=== PATIENT | female | born 1985 | race Caucasian/White ===

== ENCOUNTER 2017-09-24 03:04 | Emergency (ER) | payer OTHER ==
[~2017-09-24] VITALS: Ht 162.6 cm; Wt 89.9 kg
[~2017-09-24 03:04] MED LIST: ALD250 PO; CLON1TAB PO; DOCU-299 PO; FERR325E14 PO; PREN-385 PO
[2017-09-24 03:10] VITALS: BP 147/92
--- NOTE | 2017-09-24 03:15 | NUR ---
PT AMBULATED TO BED 1
--- NOTE | 2017-09-24 03:21 | NUR ---
32 Y/O F W/C/O R SIDE HEAD PAIN WHICH RADIATES TO R SIDE OF FACE X YESTERDAY MORNING. MED HX HTN, ACID REFLUX, ANEMIA, ANXIETY. IBUPROFEN 600MG TAKEN AT HOME AROUND 2 AM. SKIN IS PINK/WARM/DRY; AAOX4 WITH EVEN AND STEADY GAIT; LUNGS CLEAR BL; HR EVEN AND REGULAR; PT DENIES ANY FEVER, CP, SOB, OR COUGH AT THIS TIME; PATIENT STATES PAIN OF 5/10 AT THIS TIME; VSS; PATIENT POSITIONED FOR COMFORT; HOB ELEVATED; BEDRAILS UP X2; BED DOWN. ER MD MADE AWARE OF PT STATUS.
[2017-09-24 04:24] VITALS: BP 145/91
--- NOTE | 2017-09-24 04:24 | NUR ---
Patient discharged with v/s stable. Written and verbal after care instructions given and explained. Patient verbalized understanding. Ambulatory with steady gait. All questions addressed prior to discharge. Advised to follow up with PMD.
== END 2017-09-24 04:24 | disposition home or self-care (01) ==
LOC: MED 03:04
DX: G44.209 Tension-type headache, unspecified, not intractable (principal); J45.909 Unspecified asthma, uncomplicated; E11.9 Type 2 diabetes mellitus without complications; I10 Essential (primary) hypertension; Z88.5 Allergy status to narcotic agent
CPT/HCPCS: 99283

== ENCOUNTER 2018-10-22 23:42 | Emergency (ER) | payer OTHER ==
[~2018-10-22] VITALS: Ht 162.6 cm; Wt 87.2 kg
[~2018-10-22 23:42] MED LIST changes: -ALD250 PO; +METH250T32 PO
[2018-10-22 23:47] VITALS: BP 151/86
--- NOTE | 2018-10-22 23:51 | NUR ---
PT AMBULATED TO ER BED 6
[2018-10-22] MEDS ORDERED: NACL 0.9% 500 ML IV ONE (23:56)
[2018-10-23] MEDS ORDERED: ONDANSETRON 4 MG/2 ML VIAL IVP ONE
[2018-10-23] MEDS ORDERED: KETOROLAC 30 MG/ML VIAL IVP ONE
--- NOTE | 2018-10-23 | NUR ---
PT BIB SELF C/O EPIGASTRIC PAIN. PT STATES PAIN STARTED 1.5 HOURS AGO AFTER EATING BLUEBERRIES. PT STATES PAIN HAS BEEN OFF AND ON X12 DAYS, GOT WORSE TONIGHT. PT STATES SHE WAS SEEN AT [facility] LAST NIGHT AND WAS DX W/ GALLSTONES. DENIES TAKING PAIN MEDS AT HOME. +TENDERNESS TO RUQ, RADIATES TO RIGHT SIDE OF BACK. DENIES N/V, +DIARRHEA TODAY. PT BREATHING EQUAL AND UNLABORED. BOWEL SOUND ACTIVE X4 QUAD. PT ACTING APPROPRIATLY. PT IN GOWN, IN BED; BED IN LOWER LOCKED POSITION. PENDING MD MATHEW. WILL CONTINUE TO MONITOR. PMH: HTN, ACID REFLUX, ANXIETY
--- NOTE | 2018-10-23 00:15 | NUR ---
Dr. Mills evaluating patient at bedside.
[2018-10-23 00:18] LABS: BASOPHILS # (AUTO) 0.1 K/uL (0.00-0.22); BASOPHILS % (AUTO) 1.1 % (0.0-2.0); EOSINOPHILS # (AUTO) 0.1 K/uL (0-0.4); EOSINOPHILS % (AUTO) 0.7 % (0.0-4.0); HEMATOCRIT 32.9 % (36-48); HEMOGLOBIN 10.2 g/dL (12.0-16.0); LYMPHOCYTES # (AUTO) 4.3 K/uL (2.5-16.5); LYMPHOCYTES % (AUTO) 50.8 % (20.5-51.1); MEAN CORPUSCULAR HEMOGLOBIN 23 pg (27-31); MEAN CORPUSCULAR HGB CONC 31 g/dL (33-37); MEAN CORPUSCULAR VOLUME 73.6 fL (80-94); MONOCYTES # (AUTO) 0.7 K/uL (0.8-1.0); MONOCYTES % (AUTO) 8.6 % (1.7-9.3); NEUTROPHILS # (AUTO) 3.2 K/uL (1.8-7.7); NEUTROPHILS % (AUTO) 38.8 % (42.2-75.2); PLATELET COUNT (AUTO) 368 K/uL (140-450); RED BLOOD CELL COUNT(AUTO) 4.47 MIL/uL (4.20-5.40); RED CELL DISTRIBUTION WIDTH 17.3 % (11.6-13.7); WHITE BLOOD COUNT (AUTO) 8.4 K/uL (4.8-10.8)
[2018-10-23 00:22] LABS: ANION GAP 15.3 (8-16); CARBON DIOXIDE 24.2 mmol/L (21-32); CREATININE 0.8 mg/dL (0.6-1.3); POTASSIUM 3.5 mmol/L (3.5-5.1)
[2018-10-23 00:28] LABS: ALBUMIN 3.6 g/dL (3.4-5.0); TOTAL BILIRUBIN 0.3 mg/dL (0.0-1.0)
--- NOTE | 2018-10-23 00:43 | NUR ---
PT RETURN FROM RAD
--- NOTE | 2018-10-23 00:52 | NUR ---
Ultrasound at bedside.
[2018-10-23] MEDS ORDERED: PANTOPRAZOLE 40 MG INJ VIAL IVP ONE (01:00)
--- NOTE | 2018-10-23 01:17 | NUR ---
PT RESTING, PAIN HAS DECREASED. PT STATES 4/10 PAIN AT THIS TIME. COMFORT MEASURE AND BLANKET PROVIDED.
--- NOTE | 2018-10-23 01:18 | NUR ---
Dr. Mills evaluating patient at bedside.
--- NOTE | 2018-10-23 01:32 | NUR ---
Patient discharged with v/s stable. Patient states pain has decreased, pain 4/10 at this time; states coping. IV d/c pressure and bandage applied, bleeding controlled, sight benign. Patient acting appropriatly. Written and verbal after care instructions given and explained. Patient alert, oriented and verbalized understanding of instructions. Ambulatory with steady gait. All questions addressed prior to discharge. ID band removed. Patient advised to follow up with PMD. Rx of Mineral Oil, Lactulose, adn Omeprazole given. Patient educated on indication of medication including possible reaction and side effects. Opportunity to ask questions provided and answered.
[2018-10-23 01:51] VITALS: BP 131/69
== END 2018-10-23 01:32 | disposition home or self-care (01) ==
LOC: MED 23:42
DX: K29.70 Gastritis, unspecified, without bleeding (principal); I10 Essential (primary) hypertension; E11.9 Type 2 diabetes mellitus without complications; J45.909 Unspecified asthma, uncomplicated; Z79.899 Other long term (current) drug therapy; Z88.5 Allergy status to narcotic agent; Z88.6 Allergy status to analgesic agent; Z88.8 Allergy status to other drugs, medicaments and biological substances
CPT/HCPCS: 36415; 74018; 76705; 80053; 81025; 83690; 85025; 96361; 96374; 96375; 99284; C9113; J1885; J2405; J7030; Q0092

== ENCOUNTER 2019-06-11 15:38 | Emergency (ER) | payer OTHER ==
[~2019-06-11] VITALS: Ht 162.6 cm; Wt 86.3 kg
[2019-06-11 15:46] VITALS: BP 136/71
--- NOTE | 2019-06-11 17:13 | NUR ---
34/F BIB FAMILY C/O VAGINAL BLEEDING SINCE YESTERDAY W/ LOWER ABD CRAMPING PAIN 10/16. 8WKS . LMP 04/17/19, . HX: HTN, GERD.PATIENT POSITIONED FOR COMFORT; HOB ELEVATED; BEDRAILS UP X1; BED DOWN. ER MD MADE AWARE OF PT STATUS.
[2019-06-11 17:32] LABS: APPEARANCE,URINE CLEAR (CLEAR); BILIRUBIN,URINE NEGATIVE (NEGATIVE); BLOOD, URINE NEGATIVE (NEGATIVE); COLOR,URINE YELLOW (YELLOW); LEUKOCYTE ESTERASE ,URINE NEGATIVE (NEGATIVE); NITRITE, URINE NEGATIVE (NEGATIVE); UGLUCOSE NEGATIVE (NEGATIVE)
[2019-06-11 18:02] LABS: BASOPHILS # (AUTO) 0.1 K/uL (0.00-0.22); BASOPHILS % (AUTO) 1.1 % (0.0-2.0); EOSINOPHILS # (AUTO) 0.1 K/uL (0-0.4); EOSINOPHILS % (AUTO) 0.9 % (0.0-4.0); LYMPHOCYTES # (AUTO) 3.5 K/uL (2.5-16.5); LYMPHOCYTES % (AUTO) 32.9 % (20.5-51.1); MEAN CORPUSCULAR HEMOGLOBIN 19 pg (27-31); MEAN CORPUSCULAR HGB CONC 29 g/dL (33-37); MEAN CORPUSCULAR VOLUME 64.5 fL (80-94); MONOCYTES % (AUTO) 9.3 % (1.7-9.3); NEUTROPHILS # (AUTO) 5.9 K/uL (1.8-7.7); NEUTROPHILS % (AUTO) 55.8 % (42.2-75.2); PLATELET COUNT (AUTO) 380 K/uL (140-450); RED CELL DISTRIBUTION WIDTH 21.3 % (11.6-13.7); WHITE BLOOD COUNT (AUTO) 10.5 K/uL (4.8-10.8)
--- NOTE | 2019-06-11 19:02 | NUR ---
Pt report given to RAYMOND ALEJANDRO. Transfer of care at this time.
--- NOTE | 2019-06-11 19:07 | NUR ---
RECEIVED REPORT FROM FLAVIA CA. TRANSFER OF CARE AT THIS TIME.
--- NOTE | 2019-06-11 20:05 | NUR ---
PT SITTING IN BED ON CELLPHONE. DENIES ANY PAIN AT THIS TIME. VSS, WILL CONTINUE TO MONITOR.
--- NOTE | 2019-06-11 20:55 | NUR ---
DR SHUKLA AT PT BEDSIDE.
[2019-06-11 21:21] VITALS: BP 136/71
--- NOTE | 2019-06-11 21:21 | NUR ---
Patient discharged with v/s stable. Written and verbal after care instructions given and explained. Patient alert, oriented and verbalized understanding of instructions. Ambulatory with steady gait. All questions addressed prior to discharge. ID band removed. Patient advised to follow up with PMD. Rx of PLUS TABLET given. Patient educated on indication of medication including possible reaction and side effects. Opportunity to ask questions provided and answered.
== END 2019-06-11 21:21 | disposition home or self-care (01) ==
LOC: MED 15:38
DX: O26.851 Spotting complicating pregnancy, first trimester (principal); K21.9 Gastro-esophageal reflux disease without esophagitis; I10 Essential (primary) hypertension; F41.9 Anxiety disorder, unspecified; Z88.5 Allergy status to narcotic agent; Z79.899 Other long term (current) drug therapy
CPT/HCPCS: 36415; 76817; 81003; 81025; 84702; 85025; 86900; 86901; 99284; Q0092

== ENCOUNTER 2019-06-13 15:48 | Emergency (ER) | payer OTHER | END 2019-06-13 18:48 | disposition home or self-care (01) | LOC: MED 15:48 | DX: O03.9 Complete or unspecified spontaneous abortion without complication (principal); Z3A.00 Weeks of gestation of pregnancy not specified; Z98.890 Other specified postprocedural states | CPT/HCPCS: 76801; 99284 ==

== ENCOUNTER 2019-06-23 09:58 | Emergency (ER) | payer OTHER ==
[~2019-06-23] VITALS: Ht 157.5 cm; Wt 86.7 kg
[2019-06-23 10:07] VITALS: BP 125/74
--- NOTE | 2019-06-23 10:20 | NUR ---
3 DAYS PTC PT NOTED ONE EPISODE OF DARK ORANGE SPOT VAGINAL DISCHARGE NON FOUL SMELLING ASSOCIATED WITH HYPOGASTRIC CRAMPING PAIN AT 3/10 . CONSULT DONE LAST JUN 13 , NO MEDS GIVEN .FOR FFUP TODAY FOR BLOOD DRAW. PT AWAKE ,ALERT , AMBULATORY WITH STAEDY GAIT NOT IN PAIN. ABDOMEN IS SOFT NONTENDER , NORMOACTIVE BS , NO N/V. PMHX HTN , GERD. MEDS FOR HTN ,GERD.
--- NOTE | 2019-06-23 11:15 | NUR ---
LABS AT BEDSIDE.
--- NOTE | 2019-06-23 12:20 | NUR ---
DR STALLWORTH AT BEDSIDE.
--- NOTE | 2019-06-23 12:22 | NUR ---
RENEA AT BEDSIDE.
[2019-06-23 13:55] VITALS: BP 114/55
== END 2019-06-23 13:55 | disposition home or self-care (01) ==
LOC: MED 09:58
DX: O26.891 Other specified pregnancy related conditions, first trimester (principal); R10.30 Lower abdominal pain, unspecified; O99.611 Diseases of the digestive system complicating pregnancy, first trimester; K21.9 Gastro-esophageal reflux disease without esophagitis; O10.911 Unspecified pre-existing hypertension complicating pregnancy, first trimester; Z3A.01 Less than 8 weeks gestation of pregnancy; Z79.899 Other long term (current) drug therapy; Z88.5 Allergy status to narcotic agent
CPT/HCPCS: 36415; 76801; 81002; 81025; 84702; 99284; Q0092

== ENCOUNTER 2019-06-29 14:01 | Emergency (ER) | payer OTHER ==
[~2019-06-29] VITALS: Ht 162.6 cm; Wt 49.0 kg
[2019-06-29 14:25] VITALS: BP 121/62
--- NOTE | 2019-06-29 14:30 | NUR ---
PT AMBULATED TO BED 12.
--- NOTE | 2019-06-29 14:44 | NUR ---
34 YEAR OLD FEMALE COMPLAINS OF VAGINAL SPOTTING X 3 DAYS, PATIENT STATES 1 PAD USED TODAY. PATIENT STATES LOWER ABDOMINAL CRAMPING SIMILAR TO PERIOD CRAMPS STARTED 3 DAYS AGO, AND TODAY THERE WAS A LIGHT RED VAGINAL DISCHARGE. PATIENT ALERT AND ORIENTED, BREATHING EVEN AND UNLABORED. SKIN WARM AND DRY. BED IN LOWEST POSITION, LOCKED, BED RAIL UPX1.
--- NOTE | 2019-06-29 15:15 | NUR ---
US AT BEDSIDE
[2019-06-29 15:19] LABS: BASOPHILS # (AUTO) 0.1 K/uL (0.00-0.22); BASOPHILS % (AUTO) 1.3 % (0.0-2.0); EOSINOPHILS # (AUTO) 0.1 K/uL (0-0.4); EOSINOPHILS % (AUTO) 1.4 % (0.0-4.0); HEMATOCRIT 31.3 % (36-48); HEMOGLOBIN 9.2 g/dL (12.0-16.0); LYMPHOCYTES # (AUTO) 2.1 K/uL (2.5-16.5); LYMPHOCYTES % (AUTO) 33.9 % (20.5-51.1); MEAN CORPUSCULAR HEMOGLOBIN 20 pg (27-31); MEAN CORPUSCULAR HGB CONC 30 g/dL (33-37); MEAN CORPUSCULAR VOLUME 66.7 fL (80-94); MONOCYTES # (AUTO) 0.5 K/uL (0.8-1.0); MONOCYTES % (AUTO) 8.6 % (1.7-9.3); NEUTROPHILS # (AUTO) 3.4 K/uL (1.8-7.7); NEUTROPHILS % (AUTO) 54.8 % (42.2-75.2); PLATELET COUNT (AUTO) 408 K/uL (140-450); RED BLOOD CELL COUNT(AUTO) 4.68 MIL/uL (4.20-5.40); RED CELL DISTRIBUTION WIDTH 23.3 % (11.6-13.7); WHITE BLOOD COUNT (AUTO) 6.1 K/uL (4.8-10.8)
[2019-06-29 15:48] LABS: BILIRUBIN,URINE NEGATIVE (NEGATIVE); BLOOD, URINE 2+ (NEGATIVE); COLOR,URINE YELLOW (YELLOW); LEUKOCYTE ESTERASE ,URINE 1+ (NEGATIVE); NITRITE, URINE NEGATIVE (NEGATIVE); UGLUCOSE NEGATIVE (NEGATIVE)
[2019-06-29 15:51] LABS: APPEARANCE,URINE HAZY (CLEAR)
[2019-06-29 16:19] LABS: RBC,URINE 0-5 /HPF (0-5)
[2019-06-29 16:36] VITALS: BP 115/62
--- NOTE | 2019-06-29 16:36 | NUR ---
Patient discharged with v/s stable. Written and verbal after care instructions given and explained ABOUT THREATENED MISCARRIAGE. Patient verbalized understanding. Ambulatory with steady gait. All questions addressed prior to discharge. Advised to follow up with PMD. PATIENT ALERT AND ORIENTED, BREATHING EVEN AND UNLABORED. LEFT WITH FAMILY
== END 2019-06-29 16:36 | disposition home or self-care (01) ==
LOC: MED 14:01
DX: O20.0 Threatened abortion (principal); O34.11 Maternal care for benign tumor of corpus uteri, first trimester; K21.9 Gastro-esophageal reflux disease without esophagitis; I10 Essential (primary) hypertension; F41.9 Anxiety disorder, unspecified; Z3A.01 Less than 8 weeks gestation of pregnancy; Z79.899 Other long term (current) drug therapy; Z88.5 Allergy status to narcotic agent; Z88.8 Allergy status to other drugs, medicaments and biological substances
CPT/HCPCS: 36415; 76817; 81001; 84702; 85025; 86900; 86901; 87086; 99284; Q0092

== ENCOUNTER 2019-09-16 03:45 | Observation (INO) | payer OTHER ==
[~2019-09-16] VITALS: Ht 162.6 cm; Wt 88.9 kg
[2019-09-16 05:28] VITALS: BP 128/71
== END 2019-09-16 04:56 | disposition home or self-care (01) ==
LOC: MLD 03:45
PROVIDERS: ADMIT Obstetrics & Gynecology; ATTEND Obstetrics & Gynecology
DX: O26.893 Other specified pregnancy related conditions, third trimester (principal); R10.30 Lower abdominal pain, unspecified; O99.89 Other specified diseases and conditions complicating pregnancy, childbirth and the puerperium; M54.5 Low back pain; Z3A.20 20 weeks gestation of pregnancy
CPT/HCPCS: 81000; G0378